=== PATIENT | male | born 1995 | race Native Hawaiian/Other Pacific Islander ===

== ENCOUNTER → 2021-01-16 11:31 | Outpatient (ROUT) | payer OTHER, SELFPAY ==
[2021-01-16 12:06] LABS: Liquefaction Semen YES (YES); Sperm Count 137 x10^6/mL (20-150)
[2021-01-16 12:07] LABS: Sperm Morphology 41 %ABNORM (0-30); Sperm Motility 85% % Motile
== END ==
PROVIDERS: Visit Provider Obstetrics & Gynecology
DX: Z31.41 Encounter for fertility testing (principal)
CPT/HCPCS: 89320